=== PATIENT | female | born 1990 | race Two or more races ===

== ENCOUNTER 2020-11-22 06:38 | Inpatient (IN) | payer BC ==
[~2020-11-22] VITALS: Ht 157.5 cm; Wt 97.7 kg
[~2020-11-22 06:38] MED LIST: DOCU-131 PO; FERR325T18 PO; IBUP-1222 PO; OXYC1TAB14 PO
[2020-11-22] MEDS ORDERED: NEWBORN KIT ONE (07:11)
[2020-11-22] MEDS ORDERED: OXYTOCIN 30U/ 0.9% NaCL 500ML 500 ML ONE (07:11)
[2020-11-22 07:16] VITALS: BP 119/64
[2020-11-22] MEDS ORDERED: OXYTOCIN 30U/ 0.9% NaCL 500ML 500 ML IV ONE (07:30)
[2020-11-22] MEDS ORDERED: TERBUTALINE 1 MG/ML, 1ML IVPush PRN (07:30)
[2020-11-22] MEDS ORDERED: TERBUTALINE 1 MG/ML, 1ML SQ PRN (07:30)
[2020-11-22] MEDS ORDERED: FENTANYL PF 100 MCG/2ML IV PRN (07:30)
[2020-11-22] MEDS ORDERED: ONDANSETRON 2MG/ML, 2ML IVPush PRN (07:30)
[2020-11-22] MEDS ORDERED: PENICILLIN GK 5,000,000 UNITS in DEXTROSE 5% 100 ML IVPB ONE (07:30)
[2020-11-22 07:40] VITALS: BP 119/64
[2020-11-22] MEDS ORDERED: PENICILLIN GK 2,500,000 UNITS in DEXTROSE 5% 100 ML IVPB SCH (08:00)
[2020-11-22] MEDS: LACTATED RINGERS 1,000 ML IV SCH ×2 (08:03→10:30)
[2020-11-22] MEDS: FENTANYL PF 100 MCG/2ML IVPush PRN ×5 (08:16→13:09)
[2020-11-22 08:26] LABS: BASOPHILS % (AUTO) 0 % (0-1); EOSINOPHILS % (AUTO) 0 % (1-7); LYMPHOCYTES % (AUTO) 27 % (22-44); MEAN CORPUSCULAR HEMOGLOBIN 30.4 pg (27.0-34.8); MEAN CORPUSCULAR HGB CONC 33.7 g/dL (32.4-35.8); MEAN PLATELET VOLUME 10.1 fL (7.4-10.4); MONOCYTES % (AUTO) 7 % (2-9); NEUTROPHILS % (AUTO) 66 % (42-75); PLATELET COUNT 219 x10^3/uL (130-400); RED BLOOD COUNT 4.23 x10^6/uL (3.82-5.3); RED CELL DISTRIBUTION WIDTH 14.5 % (9.6-15.2)
[2020-11-22] MEDS ORDERED: OXYTOCIN 30U/ 0.9% NaCL 500ML 500 ML IV PRN (13:00)
[2020-11-22] MEDS: IBUPROFEN 600 MG TABLET PO PRN ×2 (14:13→23:39)
[2020-11-22] MEDS ORDERED: MISOPROSTOL 200 MCG TABLET PR PRN (14:30)
[2020-11-22] MEDS ORDERED: ACETAMINOPHEN 325 MG TABLET PO PRN (14:30)
[2020-11-22] MEDS ORDERED: OXYcodone IR 5MG TABLET PO PRN (14:30)
[2020-11-22] MEDS ORDERED: OXYcodone/APAP 5/325MG TABLET PO PRN (14:30)
[2020-11-22] MEDS ORDERED: CARBOPROST TROMETHAMINE 250 MCG/ML, 1ML IM PRN (14:30)
[2020-11-22] MEDS ORDERED: DOCUSATE 100 MG CAPSULE PO PRN (14:30)
[2020-11-22] MEDS ORDERED: SIMETHICONE 80 MG CHEW TAB PO PRN (14:30)
[2020-11-22] MEDS ORDERED: ONDANSETRON 2MG/ML, 2ML IV PRN (14:30)
[2020-11-22] MEDS ORDERED: OXYTOCIN 30U/ 0.9% NaCL 500ML 500 ML IV SCH (14:30)
[2020-11-22 16:20] VITALS: BP 108/64
[2020-11-22 19:45] VITALS: BP 113/65
[2020-11-22 22:06] LABS: BASOPHILS % (AUTO) 0 % (0-1); EOSINOPHILS % (AUTO) 0 % (1-7); LYMPHOCYTES % (AUTO) 13 % (22-44); MEAN CORPUSCULAR HGB CONC 33.5 g/dL (32.4-35.8); MEAN PLATELET VOLUME 10.2 fL (7.4-10.4); MONOCYTES % (AUTO) 5 % (2-9); NEUTROPHILS % (AUTO) 82 % (42-75); PLATELET COUNT 198 x10^3/uL (130-400); RED BLOOD COUNT 3.82 x10^6/uL (3.82-5.3); RED CELL DISTRIBUTION WIDTH 14.9 % (9.6-15.2)
[2020-11-23] VITALS: BP 104/64
[2020-11-23 04:24] VITALS: BP 120/77
[2020-11-23 09:00] VITALS: BP 111/71
[2020-11-23] MEDS ORDERED: PRENATAL VIT/IRON/FA 1 EACH TABLET PO SCH (09:00)
== END 2020-11-23 13:40 | disposition home or self-care (01) | DRG 806 ==
LOC: LDOP 06:38 → LDIP 07:33 → 2NW 16:17
PROVIDERS: ADMIT Obstetrics & Gynecology; ATTEND Obstetrics & Gynecology
PROC: 10E0XZZ Delivery of Products of Conception, External Approach (ICD-10-PCS; principal; 2020-11-22)
PROC: 10907ZC Drainage of Amniotic Fluid, Therapeutic from Products of Conception, Via Natural or Artificial Opening (ICD-10-PCS; 2020-11-22)
DX: O99.214 Obesity complicating childbirth (principal); O99.354 Diseases of the nervous system complicating childbirth; Z37.0 Single live birth; F32.9 Major depressive disorder, single episode, unspecified; F41.9 Anxiety disorder, unspecified; O99.344 Other mental disorders complicating childbirth; G43.909 Migraine, unspecified, not intractable, without status migrainosus; Z20.822 Contact with and (suspected) exposure to COVID-19; E66.9 Obesity, unspecified; O99.824 Streptococcus B carrier state complicating childbirth; Z3A.39 39 weeks gestation of pregnancy
CPT/HCPCS: 36415; 85025; 86592; 86850; 86900; 87635; G0378; J2540; J3010; J2590; J7120